=== PATIENT | male | born 1940 | race Hispanic/Latino ===

== ENCOUNTER 2022-09-15 13:00 | Emergency (ER) | payer OTHER, SELFPAY ==
--- NOTE | ~2022-09-15 | CT_ITS ---
EXAMINATION: CT abdomen pelvis wo con DATE: 09/15/2022 16:58 INDICATION: right lower abdominal pain TECHNIQUE: Computed tomography (CT) of the abdomen and pelvis was performed without intravenous contr ast. Automated exposure control and iterative reconstruction technique were employed. The dose-length product was 326.47 mGy-cm. COMPARISON: None. FINDINGS: Lower thorax: Bibasilar scar/atelectasis. Aortic valve and coronary artery calcifications. Liver: Normal. Biliary/Gallbladder: Gallbladder is normal. No bile duct dilation. Pancreas: No mass or duct dilation. Spleen: Normal. Adrenals:No mass. Kidneys: No mass, stone, or hydronephrosis. GI tract: No small or large bowel dilation. Normal appendix. Diverticulosis without diverticulitis. Mesentery/Peritoneum: No ascites, mass, or free air. Prominent upper abdominal lymph nodes, without p athologic enlargement Retroperitoneum: No mass. Atherosclerotic abdominal aortic and/or arterial calcifications. Pelvis: Mild bladder wall thickening, likely due to partial distention and outlet compromise from mil d prostatomegaly. Soft Tissues: Uncomplicated small fat-containing bilateral inguinal hernias. Bones: No acute osseous finding. IMPRESSION: No acute abdominopelvic process detected Reviewed, dictated and finalized at location [facility]
[2022-09-15 13:21] VITALS: BP 105/47; PULSE 52; RESP 18; TEMP 36.6; O2SAT 100
[2022-09-15 13:59] LABS: Basophils Percent Auto 0.5 % (0.2-1.2); Eosinophils Percent Auto 0.1 % (0-4.4); Hematocrit 42.2 % (42.0-52.0); Hemoglobin 13.1 g/dL (14.0-18.0); Immature Granulocyte Absolute 0.03 K/mm3 (0.00-0.031); Immature Granulocyte Percent A 0.4 % (0-0.5); Lymphocytes Absolute Auto 1.58 K/mm3 (0.9-3.2); Lymphocytes Percent Auto 19.9 % (18.3-44.2); Mean Corpuscular Hemoglobin 28.9 pg (26-34); Monocytes Absolute Auto 0.4 K/mm3 (0.1-0.6); Monocytes Percent Auto 5.4 % (2.6-8.5); Neutrophils Absolute Auto 5.9 K/mm3 (1.3-6.7); Neutrophils Percent Auto 73.7 % (45.5-73.1); Platelet Count Result 246 k/mm3 (150-375); Red Blood Count 4.54 M/mm3 (4.6-6.20); Red Cell Distribution Width 14.2 % (11.5-14.5); White Blood Count 7.9 K/mm3 (4.5-10.0)
[2022-09-15 14:09] LABS: Alanine Aminotransferase 154 U/L (6-50); Albumin Level 4.6 g/dL (3.5-5.1); Alkaline Phosphatase 164 U/L (38-126); Anion Gap 12 mmol/L (8-16); Aspartate Amino Transferase 68 U/L (17-59); Bilirubin,Total 1.3 mg/dL (0.2-1.3); Blood Urea Nitrogen 20 mg/dL (9-20); Calcium 9.5 mg/dL (8.4-10.2); Carbon Dioxide 25 mmol/L (22-30); Chloride 106 mmol/L (98-107); Estimated CRCL calculation 62 ml/min; Estimated Glomerular Filt Rate > 60; Glucose 160 mg/dL (65-110); Lipase 152 U/L (23-300); Potassium 4.1 mmol/L (3.4-5.0); Sodium 143 mmol/L (137-145)
--- NOTE | 2022-09-15 15:08 | ECG_ITS ---
Measurements Intervals Hood Rate: 48 P: 41 NH: 193 QRS: 6 QRSD: 102 T: 26 QT: 478 QTc: 429 Interpretive Statements SINUS BRADYCARDIA NO PREVIOUS ECG AVAILABLE FOR COMPARISON Electronically Signed On 09-15-2022 15:54:03 [employer] by Maciel Campbell M.D.
[2022-09-15 15:40] VITALS: BP 168/72; PULSE 58
--- NOTE | 2022-09-15 16:24 | PC.NURSE ---
pt refusing straight catheter. pt states he will try and go in a urinal. urinal at bedside.
[2022-09-15 16:33] VITALS: BP 131/66; PULSE 71; RESP 18; O2SAT 95
--- NOTE | 2022-09-15 16:47 | ED.ABDPAIN ---
HPI - Abdominal Pain General Chief Complaint: Abdominal Pain Stated Complaint: ABD PAIN,N/V Time Seen by Provider: 09/15/22 15:29 Source: patient, family and RN notes reviewed Limitations: language barrier (frisian speaking, son at bedside) History of Present Illness HPI narrative: This is an 82 year old male who presents for evaluation of abdominal pain. He states 2 days ago he develop severe diffuse abdominal pain that was constant. He also had associated nausea and emesis x 6, and he felt better. He developed worsening right lower abdominal today with nausea and loose stools. He denies fever or chills. He reports having similar symptoms 8 months ago and he states he was given medications and he felt better. Patient is also reporting ingestion and nausea. Related Data Allergies Allergy/AdvReac Type Severity Reaction Status Date / Time aspirin Allergy Rash Verified 09/15/22 13:25 omeprazole Allergy Rash Verified 09/15/22 13:25 Review of Systems Constitutional: Constitutional: Denies weakness Cardiovascular: Cardiovascular: Denies syncope, Denies rapid heart rate, Denies irregular heart rhythm, Denies leg edema and Denies dyspnea Respiratory: Respiratory: Denies chest congestion, Denies hemoptysis, Denies excessive phlegm production and Denies dyspnea Gastrointestinal: Gastrointestinal: Reports abdominal pain, Reports bloating, Denies hematochezia, Denies diarrhea, Reports nausea and Reports vomiting Genitourinary: Genitourinary: Denies hematuria, Denies dysuria, Denies penile discharge and Denies testicular pain Musculoskeletal: Musculoskeletal: Denies joint swelling, Denies loss of height and Denies muscle weakness Neurologic: Denies syncope, Denies focal weakness and Denies weakness PMFSH Past Medical History Medical History (Updated 09/15/22 @ 18:56 by Katie Castillo MD) No significant medical problems Surgical History Surgical History (Updated 09/15/22 @ 16:54 by Katie Castillo MD) No pertinent past surgical history Social History Social History (Updated 09/15/22 @ 16:55 by Katie Castillo MD) Smoking status: Never smoker Exam Const: General: alert Nutritional Appearance: well nourished Orientation/consciousness: patient oriented x3 HENMT: Head: normal to inspection Throat: posterior oropharynx normal Eyes: EOM: EOMs intact bilaterally Neck: Neck: normal visual inspection Chest: Chest palpation & inspection: normal inspection of the chest Resp: Effort & Inspection: normal respiratory effort Auscultation: clear to auscultation bilaterally Cardio: Rate: regular rate Rhythm: regular rhythm Heart sounds: no murmurs GI: GI Palp: Yes Soft to palpation, Yes Tenderness to palpation present (GI) (RLQ), No Guarding due to palpation present (GI) and No Rigid due to palpation Auscultation: normal bowel sounds : General: Yes no CVA tenderness Skin: General skin exam: normal color Neuro: General: patient oriented x3, moves all extremities and CN's II-XI intact bilaterally Extrem: General: normal to inspection Psych: Mental Status: mental status grossly normal Affect: normal affect Attitude: cooperative Course Reevaluation(s) Reevaluation #1: Patient does not want CT done with IV contrast as he is afraid of an allergic reaction. He has never had CT with IV contrast and he has never had reaction. He understands that IV contrast with CT is the best study. but he would like to due noncontrast. Date: 09/15/22 Time: 16:51 Reevaluation #2: I Reviewed with patient and son that CT did not show any abnormality, His symptoms appear to be gERD. no appy. He states he can take pantoprazole . I also reviewed discharge instructions. Date: 09/15/22 Time: 18:41 Vital Signs Vital signs: Vital Signs Temperature 98 F 09/15/22 13:21 Pulse Rate 52 L 09/15/22 13:21 Respiratory Rate 18 09/15/22 13:21 Blood Pressure 105/47 L 09/15/22 13:21 Pulse Oximetry 100 09/15/22 13:21
[2022-09-15 16:52] LABS: Add Urine Microscopic? YES; Appearance Urine Slightly Cloudy (Clear); Bilirubin Urine 1+ (Negative); Blood Urine Negative (Negative); Color Urine Yellow (Yellow); Glucose Urine UA Negative (Negative); Ketones Urine 1+ mg/dL (Negative); Leukocyte Esterase Ur Negative LEU/UL (Negative); Nitrate Urine Negative (Negative); Protein Urine Trace mg/dL (Negative); Specific Grav Ur >= 1.030 (1.001-1.035); pH Urine 5.5 (5.0-9.0)
[2022-09-15] MEDS: SODIUM CHLORIDE 0.9% IV 1,000 ML 999 ML IV CONT (17:04)
[2022-09-15] MEDS: MORPHINE SULFATE (*CRX) 4 MG/ML INJ IV PUSH (17:04)
[2022-09-15] MEDS: ONDANSETRON INJ 4 MG/2 ML VIAL IV PUSH (17:04)
[2022-09-15 17:15] LABS: Amorphous Sediment Urine Few; Bacteria Urine Trace /hpf; Mucus Urine Heavy /lpf; Squamous Epithelial Cell Urine Rare /hpf (Few); WBC Urine 0-3 /hpf
[2022-09-15] MEDS: MAG HYDROX/AL HYDROX/SIMETH 30 ML UDC PO (17:16)
[2022-09-15] MEDS: PANTOPRAZOLE SODIUM IV 40 MG VIAL IV PUSH (18:09)
[2022-09-15 18:36] LABS: Troponin I < 0.012 ng/mL (0.000-0.034)
[2022-09-15 19:14] VITALS: BP 121/71; PULSE 66; RESP 18; O2SAT 98
== END 2022-09-15 19:15 | disposition home or self-care (01) ==
PROVIDERS: Emergency Medicine; Emergency Provider General Practice
DX: K21.9 Gastro-esophageal reflux disease without esophagitis (principal); R00.1 Bradycardia, unspecified
CPT/HCPCS: 36415; 74176; 80053; 81001; 83690; 84484; 85025; 93005; 96361; 96374; 96375; 99284; A9270; C9113; J2270; J2405; J7030